=== PATIENT | female | born 1990 | race Hispanic/Latino ===

== ENCOUNTER 2024-09-24 07:26 | Inpatient (IN) | payer BC ==
[2024-09-24 08:00] VITALS: BMI 31.5
[2024-09-24 08:09] LABS: Fetal Membranes Rupture RUPTURE DETECTED (No Rupture)
[2024-09-24] MEDS ORDERED: Promethazine HCl 25 MG/ML VIAL IM PRN (08:59)
[2024-09-24] MEDS ORDERED: Diphenoxylate HCl/Atropine Tablet PO PRN (08:59)
[2024-09-24] MEDS ORDERED: Carboprost 250 MCG/ML AMP IM PRN (08:59)
[2024-09-24] MEDS ORDERED: Tranexamic Acid 1,000 MG/10 ML VIAL IVP PRN (08:59)
[2024-09-24] MEDS ORDERED: hydrALAZINE 20 MG/ML VIAL SLOW IVP PRN (08:59)
[2024-09-24] MEDS ORDERED: Ondansetron PF 4 MG/2 ML Vial IVP PRN (08:59)
[2024-09-24] MEDS ORDERED: Methylergonovine 0.2 MG/ML VIAL IM PRN (08:59)
[2024-09-24] MEDS ORDERED: Oxytocin 30 units/NS 500 ML 500 ML IV SCH (09:00)
[2024-09-24 09:18] LABS: Hematocrit 36.3 % (34.9-44.5); Hemoglobin 12.1 g/dL (12.0-15.5); Mean Corpuscular HGB CONC 33.3 g/dL (32.0-36.0); Mean Corpuscular Hemoglobin 28.5 pg (27.0-33.0); Mean Corpuscular Volume 85.4 fL (81.6-98.3); Mean Platelet Volume 13.2 fL (7.4-10.4); Platelet Count 100 10x3/uL (150-450); RBC Distribution Width 15.2 % (11.5-14.5); Red Blood Cell (RBC) Count 4.25 10x6/uL (3.90-5.03); White Blood Cell (WBC) Count 5.3 10x3/uL (3.5-10.5)
[2024-09-24] MEDS ORDERED: Bicitra 30 ML UDCUP PO PRN (10:04)
[2024-09-24 10:51] LABS: Hematocrit 35.6 % (34.9-44.5); Hemoglobin 11.9 g/dL (12.0-15.5); MDiff Complete? YES; Mean Corpuscular HGB CONC 33.4 g/dL (32.0-36.0); Mean Corpuscular Hemoglobin 28.8 pg (27.0-33.0); Mean Corpuscular Volume 86.2 fL (81.6-98.3); Mean Platelet Volume 12.2 fL (7.4-10.4); Platelet Count 99 10x3/uL (150-450); RBC Distribution Width 15.2 % (11.5-14.5); Red Blood Cell (RBC) Count 4.13 10x6/uL (3.90-5.03); White Blood Cell (WBC) Count 5.4 10x3/uL (3.5-10.5)
[2024-09-24 11:06] LABS: ALT (SGPT) 35 U/L (8-55); AST (SGOT) 30 U/L (5-34); Albumin 2.5 g/dL (3.5-5.0); Alkaline Phosphatase 233 U/L (40-110); Anion Gap 14 mmol/L (10-20); BUN (Urea Nitrogen) 12 mg/dL (7.0-18.7); Bilirubin, Total 0.4 mg/dL (0.2-1.2); Calc. Creatinine Clearance 153 mL/min (70-130); Carbon Dioxide 18 mmol/L (22-29); Chloride 111 mmol/L (98-107); Estimated GFR 117; Globulin 3.2 g/dL (2.4-3.5); Glucose 71 mg/dL (70-105); Potassium 4.2 mmol/L (3.5-5.1); Protein, Total 5.7 g/dL (6.0-8.3); Sodium 139 mmol/L (136-145)
[2024-09-24] MEDS: CEFAZOLIN 2 GM in Sodium Chloride 0.9% 100 ML IVPB SCH (11:10)
[2024-09-24] MEDS: Azithromycin 500 MG in Sodium Chloride 0.9% 250 ML 250 ML IVPB SCH (11:10)
[2024-09-24] MEDS: Penicillin G Potassium 5 MILL.UNITS in Sodium Chloride 0.9% 100 ML IVPB SCH (11:10)
[2024-09-24] MEDS: Famotidine/PF 20 mg/2ml Vial SLOW IVP PRN (11:11)
[2024-09-24] MEDS: Lactated Ringer's 1,000 ML IV SCH (11:11)
[2024-09-24 11:30] LABS: Band 2 % (5-11); Eosinophils 2 % (0-10); Lymphocytes 29 % (21-51); Monocytes 7 % (0-10); Neutrophil 60 % (42-75)
[2024-09-24 11:31] LABS: Giant Platelets SLIGHT HPF (0-5); Hypochromia SLIGHT = 6-15 cells (100X) (0-5/hpf); Platelet Adequacy Comment Appears Decreased
[2024-09-24] MEDS: Misoprostol 200 MCG TAB PR PRN (14:02)
[2024-09-24] MEDS: Penicillin G 2.5 MILL.units 2.5 MILL.UNITS in Premix 1 BAG IVPB SCH (14:02)
[2024-09-24] MEDS ORDERED: HYDROcodone/Acetaminophen 5/325 mg Tablet PO PRN (14:10)
[2024-09-24 14:57] LABS: D-Dimer Test 10.34 mcg/mL (0.19-0.50); PTT 30.5 sec (22.0-33.0); Prothrombin Time 10.5 sec (9.5-12.1)
[2024-09-24 15:33] LABS: HBsAg Index 0.22 S/CO (0-0.99); HIV (1/2) Antibody/Antigen Non-Reactive (NonReactive); HIV 1/2 INDEX 0.07 S/CO (<1.00); Hep B Surf Ag - L&D Non-Reactive S/CO (NonReactive)
[2024-09-24 15:34] LABS: Syphilis Antibody Nonreactive (Nonreactive); Syphilis Antibody Index 0.04 S/CO (<1.00 Non-Reactive)
[2024-09-24] MEDS: Morphine PF 10 MG/10 ML VIAL ONE (16:34)
[2024-09-24] MEDS: Tranexamic Acid 1,000 MG/10 ML VIAL ONE (16:35)
[2024-09-24] MEDS: Dexamethasone 10 MG/ML VIAL ONE (16:35)
[2024-09-24] MEDS: Ondansetron PF 4 MG/2 ML Vial ONE (16:35)
[2024-09-24] MEDS: Phenylephrine 40 MG/NS 250 ML 250 ML ONE (16:35)
[2024-09-24] MEDS: Oxytocin 10 UNITS/ML VIAL ONE (16:35)
[2024-09-24] MEDS: Acetaminophen 325 MG TAB PO SCH (16:36)
[2024-09-24] MEDS: Ketorolac Tromethamine 30 MG (1 mL) VIAL ONE (16:38)
[2024-09-24 17:57] LABS: Hematocrit 33.8 % (34.9-44.5); Mean Corpuscular HGB CONC 32.5 g/dL (32.0-36.0); Mean Corpuscular Hemoglobin 28.2 pg (27.0-33.0); Mean Corpuscular Volume 86.7 fL (81.6-98.3); Mean Platelet Volume 13.1 fL (7.4-10.4); Platelet Count 108 10x3/uL (150-450); RBC Distribution Width 15.1 % (11.5-14.5); White Blood Cell (WBC) Count 12.3 10x3/uL (3.5-10.5)
[2024-09-25 04:31] LABS: Hematocrit 28.6 % (34.9-44.5); Hemoglobin 9.5 g/dL (12.0-15.5); MDiff Complete? YES; Mean Corpuscular HGB CONC 33.2 g/dL (32.0-36.0); Mean Corpuscular Hemoglobin 28.8 pg (27.0-33.0); Mean Corpuscular Volume 86.7 fL (81.6-98.3); Mean Platelet Volume 12.1 fL (7.4-10.4); Platelet Count 93 10x3/uL (150-450); White Blood Cell (WBC) Count 12.6 10x3/uL (3.5-10.5)
[2024-09-25 04:35] LABS: Band 8 % (5-11); Lymphocytes 14 % (21-51); Monocytes 4 % (0-10); Neutrophil 74 % (42-75)
[2024-09-25 04:43] LABS: Giant Platelets SLIGHT HPF (0-5); Large Platelets SLIGHT (None Seen); Platelet Adequacy Comment Appears Decreased; RBC Morph Comment Within Normal Limits
[2024-09-25] MEDS: HYDROcodone/Acetaminophen 5/325 mg Tablet PO PRN (05:45)
[2024-09-25] MEDS: Ibuprofen 200 MG TAB PO PRN (10:20)
[2024-09-25] MEDS ORDERED: Enoxaparin 30 MG (0.3 mL) SYRINGE SC SCH (21:00)
[2024-09-26] MEDS: Simethicone Chewable 80 MG TAB PO PRN (00:50)
[2024-09-26 04:27] LABS: Hematocrit 31.1 % (34.9-44.5); Hemoglobin 10.2 g/dL (12.0-15.5); Mean Corpuscular HGB CONC 32.8 g/dL (32.0-36.0); Mean Corpuscular Hemoglobin 28.3 pg (27.0-33.0); Mean Corpuscular Volume 86.1 fL (81.6-98.3); Mean Platelet Volume 12.1 fL (7.4-10.4); Platelet Count 130 10x3/uL (150-450); RBC Distribution Width 15.1 % (11.5-14.5); Red Blood Cell (RBC) Count 3.61 10x6/uL (3.90-5.03); White Blood Cell (WBC) Count 10.8 10x3/uL (3.5-10.5)
[2024-09-26] MEDS: Ibuprofen 200 MG TAB PO SCH (08:54)
[2024-09-26] MEDS: Polyethylene Glycol 3350 17 GM Packet PO PRN (08:56)
[2024-09-26] MEDS: Enoxaparin 30 MG (0.3 mL) SYRINGE SC SCH (10:14)
[2024-09-26] MEDS: HYDROcodone/Acetaminophen 5/325 mg Tablet PO SCH (11:34)
[2024-09-27 07:38] VITALS: BP 115/80; TEMP 99.3
[2024-09-27] MEDS: Enoxaparin 40 MG (0.4 mL) SYRINGE SC SCH (08:51)
== END 2024-09-27 17:00 | disposition home or self-care (01) | DRG 784 ==
LOC: CSHLD/OP 07:26 → CSHLD 08:53 → CSHPED 16:00
PROVIDERS: ADMIT Family Medicine; ATTEND Family Medicine
PROC: 10D00Z1 Extraction of Products of Conception, Low, Open Approach (ICD-10-PCS; principal; 2024-09-24)
PROC: 0UT70ZZ Resection of Bilateral Fallopian Tubes, Open Approach (ICD-10-PCS; 2024-09-24)
DX: O42.913 Preterm premature rupture of membranes, unspecified as to length of time between rupture and onset of labor, third trimester (principal); O72.1 Other immediate postpartum hemorrhage; O99.12 Other diseases of the blood and blood-forming organs and certain disorders involving the immune mechanism complicating childbirth; O30.043 Twin pregnancy, dichorionic/diamniotic, third trimester; Z3A.35 35 weeks gestation of pregnancy; Z37.2 Twins, both liveborn; D69.6 Thrombocytopenia, unspecified; O32.1XX2 Maternal care for breech presentation, fetus 2; Z79.82 Long term (current) use of aspirin; Z79.899 Other long term (current) drug therapy; Q50.5 Embryonic cyst of broad ligament; Z30.2 Encounter for sterilization
CPT/HCPCS: 36415; 51702; 80053; 84112; 85025; 85027; 85049; 85300; 85362; 85384; 85461; 85610; 85730; 86780; 86850; 86870; 86900; 86901; 86922; 87340; 87389; 88302; 88307; 90384; 96372; 99285; J0456; J1100; J1650; J1885; J2274; J2405; J2540; J2590; J3490; J7050; J7120